=== PATIENT | male | born 1990 | race Caucasian/White ===

== ENCOUNTER 2019-03-03 03:39 | Emergency (ER) | payer MEDICAID ==
[~2019-03-03] VITALS: Ht 175.3 cm; Wt 63.5 kg
[2019-03-03 03:43] VITALS: Ht 175.3 cm; Wt 63.5 kg
--- NOTE | 2019-03-03 04:00 | NUR ---
PT. IN ED WITH C/O GENERALIZED ABD PAIN SINCE THIS MORNING. DENIES N/V/D, FEVERS, OR DYSURIA. PT. REPOPRTS HE FEELS CONSTIPATED AND HAD A SMALL BM THIS MORNING. REPORTS PAIN IS 9/10 AT THIS TIME. PT. AAOX4, TALKING AND RESPONDING APPROPRIATELY, BREATHING E/U. IN MODERATE DISTRESS AND ABD REGION TENDER TO PALPATION. DR. WATKINS AT BEDSIDE FOR MSE.
[2019-03-03 04:17] LABS: BASOPHIL % 0.3 % (0-2); PLATELET COUNT 287 x10^3mcL (130-400); RED CELL DISTRIBUTION WIDTH 12.9 % (11.5-14.5)
--- NOTE | 2019-03-03 04:25 | NUR ---
PT. LAYING ON GURNEY IN POSITION OF COMFORT. REPORTS PAIN IS NOW 5/10 AFTER TORADOL IV. CALL LIGHT IN REACH. WILL CONTINUE TO MONITOR.
--- NOTE | 2019-03-03 04:29 | NUR ---
PT. REPORTS HE IS UNABLE TO PROVIDE URINE SAMPLE AT THIS TIME.
[2019-03-03 04:35] LABS: CALCIUM 8.9 mg/dL (8.5-10.1); CARBON DIOXIDE 21.6 mmol/L (21-32); CHLORIDE SERUM 103 mmol/L (98-107); GFR1 > 60 mL/min; GLUCOSE SERUM 119 mg/dL (74-106); POTASSIUM SERUM 3.5 mmol/L (3.5-5.1); SODIUM SERUM 140 mmol/L (136-145)
--- NOTE | 2019-03-03 04:37 | NUR ---
PT. TAKEN TO CT
[2019-03-03 04:46] LABS: ALBUMIN 3.8 g/dL (3.4-5.0); ALKALINE PHOSPHATASE 95 U/L (46-116); AST/SGOT 11 U/L (15-37); BILIRUBIN TOTAL 0.51 mg/dL (0.20-1.00); LIPASE 156 IU/L (73-393); TOTAL PROTEIN, SERUM 8.1 g/dL (6.4-8.2)
--- NOTE | 2019-03-03 04:47 | NUR ---
PT. BACK FROM CT. AMBULATED TO RESTROOM WITH STEADY GAIT. STATES "I FEEL BETTER".
[2019-03-03 04:49] LABS: microscopic required? NO
[2019-03-03 04:56] LABS: ALT/SGPT 23 U/L (16-63)
--- NOTE | 2019-03-03 05:08 | NUR ---
DR. WATKINS AT BEDSIDE TO DISCUSS RESULTS AND PLAN OF CARE WITH PATIENT AND FAMILY MEMBER
[2019-03-03 05:09] LABS: urine erythrocyte NEGATIVE (NEGATIVE)
--- NOTE | 2019-03-03 05:53 | NUR ---
PER DR. WATKINS, RESIDENTS STATE TO HOLD PATIENT IN ED UNTIL FURTHER NOTICE. WILL CONTINUE TO MONITOR
--- NOTE | 2019-03-03 06:36 | NUR ---
SPOKE TO RESIDENT AND STATES THEY ARE WAITING TO TALK TO DR. VASQUEZ REGARDING PT. ADMISSION. REQUEST TO CONTINUE TO HOLD PT. IN ED.
--- NOTE | 2019-03-03 07:00 | NUR ---
RCEIVED REPORT FROM THERESA MEDEROS RN
--- NOTE | 2019-03-03 07:09 | NUR ---
REPORT GIVEN TO EDITA MALAVE FOR FURTHER CARE OF PATIENT. ALL QUESTIONS AND CONCERNS ADDRESSED.
[2019-03-03 08:20] VITALS: BP 112/74
--- NOTE | 2019-03-03 08:21 | NUR ---
FIRST INITIAL CONTACT WITH PT. PT LAYING IN BED, AAOX4, NO ACUTE DISTRESS NOTED DENIES PAIN 0/10 AT THIS TIME, UAT TESTER, PULSE OX, REPOSITIONED PT FOR COMFORT, IV 20 G RAC FLUSHED WITH 10 CC WITH NO PROBLEM, PATENT, MOTHER AT BEDSIDE, PENDING POSSIBLE ADMIT, WAITING FOR TO SEE PT. UPDATED POC WITH PT, VSS, WILL MONITOR
--- NOTE | 2019-03-03 08:58 | NUR ---
DR FISHMAN AT BEDSIDE DISCUSSING POC WITH PT
== END 2019-03-03 09:29 | disposition home or self-care (01) ==
LOC: ED 03:39 → MU 05:13 → ED 09:29
PROVIDERS: Emergency Medicine
DX: K57.30 Diverticulosis of large intestine without perforation or abscess without bleeding (principal); D72.829 Elevated white blood cell count, unspecified; K56.7 Ileus, unspecified
CPT/HCPCS: J1885